=== PATIENT | female | born 1960 | race African-American/Black ===

== ENCOUNTER 2022-07-18 06:21 | Emergency (ER) | payer OTHER, MEDICAID ==
[~2022-07-18] VITALS: Ht 165.1 cm; Wt 90.0 kg
[~2022-07-18 06:21] MED LIST: ATOR-2 PO; GLIP5TAB12 PO; LEVO50TA8 PO; LISI20TA31 PO; OMEP20CA14 PO
[2022-07-18 06:29] VITALS: BP 143/91
[2022-07-18] MEDS ORDERED: ACETAMINOPHEN 325MG TABLET PO ONE (10:30)
[2022-07-18] MEDS ORDERED: TRAMADOL 50MG TABLET PO ONE (10:30)
[2022-07-18] MEDS ORDERED: TRAM50TA3 MT (12:13)
== END 2022-07-18 12:32 | disposition home or self-care (01) ==
LOC: ER 06:21
DX: M17.12 Unilateral primary osteoarthritis, left knee (principal); J45.909 Unspecified asthma, uncomplicated; I10 Essential (primary) hypertension; E11.9 Type 2 diabetes mellitus without complications; E78.00 Pure hypercholesterolemia, unspecified; Z91.018 Allergy to other foods
CPT/HCPCS: 73562; 93971; 99284